=== PATIENT | male | born 1950 | race Caucasian/White ===

== ENCOUNTER 2018-12-31 05:29 | Observation (INO) | payer OTHER, MEDICARE ==
[~2018-12-31] VITALS: Ht 177.8 cm; Wt 68.0 kg
[2018-12-31 05:35] VITALS: BP 148/61
[2018-12-31 06:00] LABS: HEMATOCRIT 41.1 % (42.0-52.0); HEMOGLOBIN 13.6 gm/dL (14.0-18.0); MCH 30.1 pg (26.0-34.0); MCHC 33.1 g/dL (28.0-37.0); MCV 90.8 fL (80.0-100.0); NUCLEATED RBCS 0 /100WBC; PLATELET COUNT* 260 thou/uL (150-400); RBC 4.52 mil/uL (4.50-6.00); RDW-CV 13.1 % (10.5-14.5)
[2018-12-31 06:10] LABS: PROTIME 10.7 Seconds (9.20-11.50)
[2018-12-31 06:16] LABS: ALBUMIN 3.8 g/dL (3.4-5.0); CALCIUM 8.2 mg/dL (8.5-10.1); POTASSIUM 3.8 mmol/L (3.5-5.1)
[2018-12-31 07:04] LABS: ABSOLUTE LYMPHOCYTES 0.8 thou/uL (0.8-5.3); ABSOLUTE MONOCYTES 0.2 thou/uL (0.0-1.2); ANISOCYTOSIS 1+; PLATELET ESTIMATE ADEQUATE; POIKILOCYTOSIS 1+
[2018-12-31 10:52] VITALS: BP 115/67
[2018-12-31 14:17] VITALS: BP 120/53
--- NOTE | 2018-12-31 15:09 | OP ---
[facility] [address] [place] [address] OPERATIVE REPORT Name: PHIL DANIELLE Room: [address] IN M.R.#: [id number] Admission: 12/31/18 Attend Phys: Jeri Murillo DO Discharge: Date of : 54 Report #: [id number] THIS REPORT FOR: //name// CC: Jeri Murillo [facility] physician/PCP DICTATED BY: Brianna García DO DATE OF SERVICE: 12/31/2018 PREOPERATIVE DIAGNOSIS: Acute appendicitis. POSTOPERATIVE DIAGNOSIS: Acute appendicitis and intra-abdominal adhesions. PROCEDURE PERFORMED: Laparoscopic appendectomy. PRIMARY SURGEON: Jeri Murillo DO. ACADEMIC INTERVENTIONIST: Brianna García DO, PGY1. SECOND ACADEMIC INTERVENTIONIST: Malena Rios MS3. ANESTHESIA: General endotracheal and local. ESTIMATED BLOOD LOSS: 5. SPECIMEN REMOVED: Appendix. COMPLICATIONS: None. INDICATION FOR PROCEDURE: The patient is a 68-year-old male with past medical history of hypertension. He presented to the ED today with sudden onset right-sided lower abdominal pain that started last night, accompanied by nausea and dry heaves. He complained of increasing pain overnight and continued with nausea, no fever or chills. CT scan in the ED revealed acute appendicitis. We recommended laparoscopic appendectomy. I discussed the procedure, risks, and benefits with the patient, he wished to proceed. DESCRIPTION OF PROCEDURE: Informed consent was obtained. The patient was taken to the operating room and placed supine on the operating room table. Preoperative antibiotics were given. SCDs were placed on bilateral lower extremities. General endotracheal anesthesia was induced without difficulty. The patient's left arm was tucked at his side. The patient was then prepped and draped in the standard sterile fashion. Timeout was performed to ensure correct patient and procedure. We then began by injecting approximately 10 mL of 0.5% Marcaine supraumbilically. We then made a [place] [address] OPERATIVE REPORT Name: PHIL DANIELLE Room: [address] IN [facility]#: [id number] Admission: 12/31/18 Attend Phys: Jeri Murillo DO Discharge: Date of : 54 Report #: [id number] with #11 blade scalpel. Incision was carried down to the subcutaneous tissue using electrocautery. We then used S retractors to continue our dissection down to the fascia. Fascia was then grasped between 2 Kochers. Fascia was incised using electrocautery. We then bluntly entered the peritoneum using a hemostat. A finger sweep was performed to ensure there were no surrounding adhesions. We did find some adhesions there at the umbilicus, were taken down with blunt dissection. We then placed 2-0 Vicryl stay sutures on either side of our fascial incision. 10 mm Skyla trocar was introduced through our incision. Insufflated the abdomen. We then inserted our 5 mm laparoscopic camera and did a sweep of the anterior abdominal contents. Noted some adhesions in the left lower quadrant from a prior left inguinal hernia repair as well as some adhesions at the umbilicus. It was also noted that he has a recurrent left inguinal hernia as well as a direct and indirect right inguinal hernia seen, nothing else abnormal. We then placed a 5 mm trocar in the left lower quadrant under direct visualization. Using laparoscopic Ixonia, we then identified the appendix in the right lower quadrant. It appeared to be retrocecal. There was some purulent peritonitis. Once the appendix was identified, we then placed a suprapubic 5 mm trocar under direct visualization. We then grasped the mesoappendix with laparoscopic Magdalena, easily identified the tip of our appendix. We then used blunt dissection to identify the base of our appendix. Once the base of our appendix was identified, we took a laparoscopic [place] and made a window at the base of the appendix through the mesoappendix. Once we achieved a window through the mesoappendix at the base of the appendix, we then inserted our Endo-SRUTHI stapler with a 45 mm purple load. We came across the base of the appendix without difficulty, inspected our staple lines. Once this was completed, we then inserted another 45 mm purple load on the Endo-SRUTHI stapler to come across her mesoappendix. This again was done without difficulty. Staple lines were inspected to ensure satisfactory hemostasis. Seeing no obvious bleeding, we then placed our appendix in the EndoCatch bag. At this point, we were noticing some additional adhesions at the umbilicus near our Skyla trocar. We did take these down using electrocautery. We reinspected our staple lines and irrigated the right lower quadrant with sterile saline. At this point, we allowed the abdomen to desufflate slightly to ensure hemostasis at her staple lines. Seeing no active bleeding, we re-hooked our gas tubing to our trocar. We then removed our suprapubic and left lower quadrant 5 mm trocars under direct visualization. Abdomen was desufflated and we removed our camera. We then removed our Skyla trocar and appendix in the EndoCatch bag. Fascia was then grasped between 2 Tahira stay sutures, were removed. We then placed a [id number] 0 Vicryl suture to close the fascial opening, then closed the subcutaneous tissue at the supraumbilical incision using 3-0 Vicryl in simple interrupted fashion. I then closed the skin at the supraumbilical incision using 4-0 Monocryl in a subcuticular running fashion. The skin was closed at both the suprapubic and left lower quadrant incisions using 4-0 Monocryl in a simple interrupted fashion. The remaining 20 mL of local anesthetic was injected into our incisions. The patient tolerated the procedure well. He was allowed to awaken in the operating room, and was then [place] [address] OPERATIVE REPORT Name: PHIL DANIELLE Room: [address] IN ..#: [id number] Admission: 12/31/18 Attend Phys: Jeri Murillo DO Discharge: Date of : 54 Report #: [id number] condition with plans for admission to the floor for observation and possible discharge home later today. <ELECTRONICALLY SIGNED> By: Jeri Murillo DO 12/31/18 1509 1319 1410Chrislouann Murillo DO /nt
--- NOTE | 2018-12-31 15:56 | EKG ---
[place] [address] ELECTROCARDIOGRAM REPORT Name: PHIL DANIELLE Room: [address] ADM IN M.R.#: [id number] Admission: 12/31/18 Attend Phys: Jeri Murillo DO Discharge: Date of : 54 Report #: [id number] THIS REPORT FOR: //name// [facility] Test Date: 2018-12-31 Test Time: 11:35:38 Pat Name: PHIL MOOREBARRETTMiranda Department: Room: [facility] Gender: M Senior Maintenance Mechanic: BERNIE SHARP : 1950 Requested By: Jeri Murillo Order Number: [id number] Elsy MD: Chema Landaverde Measurements Intervals [place] Rate: 97 P: 53 ME: 155 QRS: 4 QRSD: 84 T: 23 QT: 335 QTc: 426 Interpretive Statements Sinus rhythm Consider left ventricular hypertrophy Baseline wander in lead(s) V1 No previous ECG available for comparison Electronically Signed On 12-31-2018 15:56:47 CDT by Chema Landaverde [email or web address] <ELECTRONICALLY SIGNED> By: Chema Landaverde MD, [facility] 12/31/18 1556 1135 [id number] Chema Landaverde MD, [facility] /EPI
[2018-12-31 16:40] VITALS: BP 103/61
[2018-12-31 17:47] VITALS: BP 103/61
[2018-12-31] MEDS ORDERED: OXYCODONE HCL 55 MG PO (17:53)
--- NOTE | 2019-01-01 17:06 | PATH ---
[facility] [address] [place] [address] PATHOLOGY RPT PROCEDURE Name: SCOT CRAVEN Room: [address] Jose#: [id number] Admission: 12/31/18 Date of : 54 Discharge: 12/31/18 Report #: [id number] Path Case #: [id number] [facility] Accession Number: [id number] . 01 Material submitted: . appendix - APPENDIX . 01 Clinical history: . Acute appendicitis . 02 Diagnosis: Appendix: - Acute appendicitis, periappendicitis and serositis. (MANPREET:norma; 01/01/2019) MBR/01/01/2019 . 02 Electronically signed: . Jorge Serrano MD, Pathologist NPI- [id number] . 01 Gross description: . The specimen is received in formalin, labeled "Scot Craven, appendix", is an appendix measuring 4.0 cm in length and up to 1.0 cm in width with abundantly attached mesoappendix measuring 5.0 x 2.8 x 1.0 cm. The proximal margin is closed by a linear staple line measuring 1.5 cm in length with an average 0.2 cm width. The serosa is bahena-pink and diffusely covered by roque-white fibrinopurulent exudate that extends to the adjacent mesoappendix. The staple line and the adjacent serosa is inked black. The lumen is not dilated and is filled with hemorrhagic material. The wall has an average thickness of 0.3 cm. No discrete perforation, fecalith or masses identified. Chassis Wirer tissue is submitted in A1. (SWS; 12/31/2018) SHS/SHS . 02 Pathologist provided ICD-10: K35.80, K65.8 . 02 CPT . 397129 Specimen Comment: A courtesy copy of this report has been sent to Specimen Comment: [phone]. Specimen Comment: Report sent to Performed at: [address] [id number] MD Maykel Van MD Phone: [phone] Performed at: [address] [place] [address] PATHOLOGY RPT PROCEDURE Name: LINSEYMirandaSCOT Nolasco Room: [address] Gaby Garcia#: [id number] Admission: 12/31/18 Date of : 54 Discharge: 12/31/18 Report #: [id number] Path Case #: [id number] [facility] [address], [place], [place] [id number] MD Jorge Serrano MD Phone: [phone]
== END 2018-12-31 18:29 | disposition home or self-care (01) ==
LOC: M.ERS 05:29 → M.ORTHSURG 08:02 → M.TBA 08:02 → M.TBA-ER 08:02 → M.TBA 10:54 → M.ORTHSURG 14:13
PROVIDERS: Emergency Medicine; ADMIT Surgery
DX: K35.80 Unspecified acute appendicitis (principal); K66.0 Peritoneal adhesions (postprocedural) (postinfection); I10 Essential (primary) hypertension; Z98.890 Other specified postprocedural states

== ENCOUNTER 2019-01-06 05:58 | Inpatient (IN) | payer OTHER, MEDICARE ==
[~2019-01-06] VITALS: Ht 177.8 cm; Wt 68.9 kg
[~2019-01-06 05:58] MED LIST: OXYCODONE HCL 55 MG PO
[2019-01-06 06:26] VITALS: BP 117/62
[2019-01-06 06:26] LABS: ICTOTEST (BILI CONFIRMATORY) Negative (Negative); URINE BILIRUBIN 1+ (Negative); URINE BLOOD NEGATIVE (Negative); URINE CLARITY CLEAR; URINE COLOR YELLOW; URINE GLUCOSE-RANDOM TRACE (Negative); URINE KETONES TRACE (Negative); URINE LEUKOCYTES-REFLEX NEGATIVE (Negative); URINE NITRITE-REFLEX POSITIVE (Negative); URINE PROTEIN 1+ (Negative); URINE SPECIFIC GRAVITY 1.025 (1.005-1.030)
[2019-01-06] MEDS ORDERED: LISINOPRIL20 MG PO (06:30)
[2019-01-06 06:36] LABS: HEMATOCRIT 32.1 % (42.0-52.0); HEMOGLOBIN 10.5 gm/dL (14.0-18.0); MCH 29.7 pg (26.0-34.0); MCHC 32.7 g/dL (28.0-37.0); MCV 90.9 fL (80.0-100.0); MPV 7.1 fl. (7.2-11.1); NUCLEATED RBCS 0 /100WBC; PLATELET COUNT* 405 thou/uL (150-400); RBC 3.53 mil/uL (4.50-6.00); RDW-CV 13.4 % (10.5-14.5)
[2019-01-06 06:42] LABS: CRYSTALS None Seen /LPF (None Seen); FINE GRANULAR CASTS 0-3 Few /LPF (None Seen); HYALINE CASTS 4-10 Moderate /LPF (None Seen); MUCUS 4-6 Moderate strn/LPF (None Seen); SQUAMOUS 0-3 Few /LPF (0-3); URINE RBC 0-2 Rare /HPF (0-2); URINE WBC-REFLEX 0-5 Rare /HPF (0-5)
[2019-01-06 06:57] LABS: ABSOLUTE EOSINOPHILS 0.2 thou/uL (0.0-0.7); ABSOLUTE MONOCYTES 1.6 thou/uL (0.0-1.2); ABSOLUTE NEUTROPHILS 14.2 thou/uL (1.6-8.1)
[2019-01-06 06:58] LABS: ANISOCYTOSIS 1+; PLATELET ESTIMATE INCREASED; POIKILOCYTOSIS 1+
[2019-01-06 07:02] LABS: ALBUMIN 2.9 g/dL (3.4-5.0); CREATININE 1.6 mg/dL (0.6-1.3); POTASSIUM 4.1 mmol/L (3.5-5.1); TOTAL BILIRUBIN 1.7 mg/dL (<0.1-1.0); TOTAL PROTEIN 7.6 g/dL (6.4-8.2)
--- NOTE | 2019-01-06 07:52 | NUR ---
MONA NOTIFIED UPON PT RETURN FROM CT. PT WAS NOT CONNECTED TO MONITOR HE WAS NOT CONNECTED PRIOR TO GOING TO CT
[2019-01-06 17:09] VITALS: BP 124/62
[2019-01-06 17:45] VITALS: BP 141/64
--- NOTE | 2019-01-06 18:56 | NUR ---
68 YEAR OLD MALE ADMITTED WITH POST OP ILEUS, HEMATOMA AND UTI. ADMISSION PROCESS COMPLETED. PT ORIENTED TO ROOM, BED CONTROLS AND CALL LIGHT. IVF AND ABX WERE STARTED IN THE ED. PT HAS A HEMATOMA ON THE LEFT SIDE THAT EXTENDS AROUND HIS SIDE, I OUTLINED IT WITH A SHARPIE FOR FUTURE REFERENCE. PLAN OF CARE DISCUSSED.
[2019-01-06 20:00] VITALS: BP 132/72
[2019-01-07] VITALS (14 sets, daily range): BP systolic 107–137; BP diastolic 49–73
[2019-01-07 04:01] LABS: ABSOLUTE LYMPHOCYTES 1.1 thou/uL (0.8-5.3); ABSOLUTE MONOCYTES 0.9 thou/uL (0.0-1.2); ABSOLUTE NEUTROPHILS 12.2 thou/uL (1.6-8.1); BASOPHILS 0.1 %; HEMATOCRIT 27.4 % (42.0-52.0); HEMOGLOBIN 9.2 gm/dL (14.0-18.0); LYMPHOCYTES 7.4 %; MCH 30.2 pg (26.0-34.0); MCHC 33.7 g/dL (28.0-37.0); MCV 89.6 fL (80.0-100.0); MONOCYTES 6.6 %; MPV 6.8 fl. (7.2-11.1); NUCLEATED RBCS 0 /100WBC; PLATELET COUNT* 404 thou/uL (150-400); POLYS 85.9 %; RBC 3.06 mil/uL (4.50-6.00); RDW-CV 13.4 % (10.5-14.5); WBC 14.2 thou/uL (4.0-11.0)
[2019-01-07 04:20] LABS: ALBUMIN 2.2 g/dL (3.4-5.0); CALCIUM 7.7 mg/dL (8.5-10.1); CREATININE 1.1 mg/dL (0.6-1.3); PHOSPHORUS* 3.5 mg/dL (2.5-4.9); POTASSIUM 4.7 mmol/L (3.5-5.1); TOTAL BILIRUBIN 1.3 mg/dL (<0.1-1.0); TOTAL PROTEIN 6.1 g/dL (6.4-8.2)
--- NOTE | 2019-01-07 11:37 | NUR ---
PT.ALERT AND ORIENTED. HE LIVES WITH HIS ,DEMARCUS. SHE WORKS HERE AT THE HOSPITAL. HE IS NORMALLY INDEPENDENT AND WORKS DISPLAY ASSOCIATE. NO USE OF DME. CM WILL FOLLOW FOR ANY DISCHARGE NEEDS.
--- NOTE | 2019-01-07 17:32 | NUR ---
PT REMAINED A&Ox4 THROUGHOUT SHIFT. VITALS STABLE. DRAIN PLACED IN RLQ OF ABD FOR HEMATOMA DRAINAGE. IV IN L AC PATENT, INFUSING. UP AD ZACHARIAH. PAIN CONTROLLED WITH FENTANYL. IN ROOM. CALL LIGHT WITHIN REACH. WILL CONTINUE TO MONITOR.
[2019-01-08 04:30] VITALS: BP 130/72
[2019-01-08 04:46] LABS: HEMATOCRIT 27.2 % (42.0-52.0); HEMOGLOBIN 9.1 gm/dL (14.0-18.0); MCH 29.9 pg (26.0-34.0); MCHC 33.4 g/dL (28.0-37.0); MCV 89.7 fL (80.0-100.0); MPV 6.7 fl. (7.2-11.1); RBC 3.03 mil/uL (4.50-6.00); RDW-CV 13.8 % (10.5-14.5); WBC 12.2 thou/uL (4.0-11.0)
[2019-01-08 04:49] LABS: ALBUMIN 2.4 g/dL (3.4-5.0); CALCIUM 8.1 mg/dL (8.5-10.1); MAGNESIUM 2.2 mg/dL (1.8-2.4); POTASSIUM 3.9 mmol/L (3.5-5.1); TOTAL PROTEIN 6.4 g/dL (6.4-8.2)
--- NOTE | 2019-01-08 05:30 | NUR ---
VITALS STABLE, AFEBRILE. ABLE TO REST SOME. DARK BLOODY DRAIN FROM ABDOMEN, MODERATE IN AMOUNT. NO INCREMENT IN HEMATOMA ON ABDOMEN. PATIENT DID NOT RECIEVE PAIN MEDS PER HIS REQUEST, MELATONIN PRN REQUESTED AND ADMINITERED FOR SLEEP. ABLE TO GET UP AND SIT IN BED FOR A COUPLE OF HOURS DURING THIS SHIFT. ABLE TO VOID, BM YESTERDAY. PATIENT REPORTS IT IS HARD TO PASS STOOL. CALL LIGHT WITHIN REACH, MOSTLY IN SEMI-LEWIS POSITION FOR COMFORT.
[2019-01-08 08:00] VITALS: BP 140/76
--- NOTE | 2019-01-08 13:17 | NUR ---
PT HAS THROWN UP TWICE DURING SHIFT, DARK BROWN VOMIT. BRIAN NOTIFIED. MALDONADO RETURNED PAGE AND STATED THAT IF PT IS UNCOMFORTABLE AN NG CAN BE PLACED FOR DRAINAGE.
[2019-01-08 16:00] VITALS: BP 164/71
--- NOTE | 2019-01-08 17:43 | NUR ---
PT REMAINED A&Ox4 THROUGHOUT SHIFT. VITALS STABLE. NAUSEA CONTROLLED WITH ZOFRAN. ABD STILL REMAINS DISTENDED AND FIRM. SMALL BOWEL MOVEMENTS THROUGHOUT THE DAY. UP AD ZACHARIAH. IV R AC PATENT, INFUSING. REMAINS NPO EXCEPT FOR ICE CHIPS AND MEDICATIONS. MAY HAVE HARD CANDY AND GUM, OK PER DR STEVENS. DRAIN IS PATENT. CALL LIGHT WITHIN REACH. IN ROOM. WILL CONTINUE TO MONITOR.
[2019-01-08 20:00] VITALS: BP 137/75
[2019-01-09 03:30] VITALS: BP 118/68
[2019-01-09 04:19] LABS: HEMATOCRIT 24.9 % (42.0-52.0); HEMOGLOBIN 8.4 gm/dL (14.0-18.0); MCH 30.8 pg (26.0-34.0); MCHC 33.9 g/dL (28.0-37.0); MCV 90.9 fL (80.0-100.0); MPV 6.9 fl. (7.2-11.1); RBC 2.74 mil/uL (4.50-6.00); RDW-CV 13.7 % (10.5-14.5); WBC 11.9 thou/uL (4.0-11.0)
[2019-01-09 04:37] LABS: CALCIUM 7.8 mg/dL (8.5-10.1); CREATININE 0.9 mg/dL (0.6-1.3); MAGNESIUM 2.1 mg/dL (1.8-2.4); PHOSPHORUS* 3.2 mg/dL (2.5-4.9); POTASSIUM 3.9 mmol/L (3.5-5.1)
--- NOTE | 2019-01-09 07:55 | NUR ---
Alert and oriented x 4. His abdomen was round and distended w/hypo bowel sounds. He did have a BM this shift but I didn't see it he said it was small. This am he said he had some emesis and it was light brown. Dr Sheppard was making rounds and said if the emesis continued he would need a NG placed. He did have a shower last evening. He has slept intermittenly.
[2019-01-09 08:30] VITALS: BP 141/75
[2019-01-09 10:47] LABS: CREATININE 0.9 mg/dL (0.6-1.3); POTASSIUM 3.6 mmol/L (3.5-5.1)
[2019-01-09 15:45] VITALS: BP 132/71
--- NOTE | 2019-01-09 19:42 | NUR ---
I ASSUMED CARE OF THE PATIENT AT 0700. HE IS ALERT AND ORIENTED X4 AND IS UP AD ZACHARIAH. HOURLY ROUNDING IS COMPLETED AND PATIENT NEEDS ARE MET. PAIN IS MANAGED WITH PRN MEDS. N/V ARE MONITORED AND NO NEED TO INSERT NG PER ORDERS. PATIENT WANTS TO WAIT UNTIL LATER FOR THE ENEMA. IS AT THE BEDSIDE OFF AND ON. WILL CONTINUE TO MONITOR.
[2019-01-09 20:00] VITALS: BP 137/72
[2019-01-10] VITALS: BP 127/63
[2019-01-10 03:30] VITALS: BP 135/68
[2019-01-10 04:26] LABS: HEMATOCRIT 25.6 % (42.0-52.0); HEMOGLOBIN 8.4 gm/dL (14.0-18.0); MCH 30.1 pg (26.0-34.0); MCHC 32.9 g/dL (28.0-37.0); MCV 91.3 fL (80.0-100.0); MPV 6.8 fl. (7.2-11.1); RBC 2.8 mil/uL (4.50-6.00); WBC 11.7 thou/uL (4.0-11.0)
[2019-01-10 04:47] LABS: CALCIUM 7.9 mg/dL (8.5-10.1); CREATININE 0.9 mg/dL (0.6-1.3); POTASSIUM 3.5 mmol/L (3.5-5.1)
[2019-01-10 04:52] LABS: MAGNESIUM 1.9 mg/dL (1.8-2.4); PHOSPHORUS* 3.3 mg/dL (2.5-4.9)
--- NOTE | 2019-01-10 05:04 | NUR ---
WARM TAP WATER ENEMA GIVEN AT 2039 LAST EVENING. HE DID HAVE MODRATE RESULTS IT WAS LIQUID WITH SOME SOLID STOOL, BROWN IN COLOR. PATIENT STATED HE HAD SOME RELIEF.
--- NOTE | 2019-01-10 06:10 | NUR ---
Alert and oriented x 4. He is up independently in the room. He did have a tap water enema last evening with moderate results. He did walk in the [place] yesterday on dayshi. He denies having any nausea. Abdomen is still distended and firm but appears to be less on both. The patient states he feels more relieved. He has slept well this shift.
[2019-01-10 08:10] VITALS: BP 138/71
[2019-01-10 16:00] VITALS: BP 127/63
--- NOTE | 2019-01-10 16:55 | NUR ---
PT REMAINED ALERT AND ORIENTED. PT WALKED HALLS, NO N/V OR PAIN. FALL RISK PRECAUTIONS IN PLACE. HOURLY ROUNDING COMPELTED. WILL CONTINUE TO MONITOR.
[2019-01-10 20:00] VITALS: BP 124/68
--- NOTE | 2019-01-10 23:29 | NUR ---
ASSUMED PATIENT CARE AT 1900. PATIENT ALERT AND ORIENTED TIMES FOUR. NO COMPLAINTS OF PAIN NOTED. ABD STILL VERY DISTENDED AND FIRM. ABLE TO AMBULATE INDEPENDENTLY TO THE SHOWER. IV PATENT. DRAIN IN RLQ DRAINING DK BROWN FLUID. WILL CONTINUE TO MONITOR. GRADES 1 THROUGH 5 TEACHER COMPLETED DOCUMENTED
--- NOTE | 2019-01-11 03:37 | NUR ---
PATIENT HAD A MODERATE AMOUNT OF BLACK, RUNNY STOOL.
[2019-01-11 04:29] LABS: HEMATOCRIT 24.2 % (42.0-52.0); HEMOGLOBIN 8.2 gm/dL (14.0-18.0); MCH 30.7 pg (26.0-34.0); MCHC 33.7 g/dL (28.0-37.0); MCV 91.1 fL (80.0-100.0); MPV 6.7 fl. (7.2-11.1); RBC 2.66 mil/uL (4.50-6.00); RDW-CV 14.1 % (10.5-14.5); WBC 10.3 thou/uL (4.0-11.0)
[2019-01-11 04:53] LABS: CALCIUM 7.2 mg/dL (8.5-10.1); CREATININE 0.8 mg/dL (0.6-1.3); MAGNESIUM 1.8 mg/dL (1.8-2.4); PHOSPHORUS* 2.5 mg/dL (2.5-4.9); POTASSIUM 3.3 mmol/L (3.5-5.1)
--- NOTE | 2019-01-11 06:11 | NUR ---
PATIENT RESTED WELL THROUGH THE NIGHT. WAS UP TIMES ONE TO USE THE RESTROOM AND HAD A SUCCESSFUL BM. HOURLY ROUNDING COMPLETED CHARTED
[2019-01-11 07:35] VITALS: BP 112/54
[2019-01-11 16:00] VITALS: BP 118/60
--- NOTE | 2019-01-11 16:46 | NUR ---
PT REMAINED ALERT AND ORIENTED. PT DRAIN EMPTIED AND RECORDED. PT HAD BM YESTERDAY, LOOSE AND TARRY. PT STATED THEY DID NOT WANT MIRALAX AT THIS TIME. FALL RISK PRECAUTIONS IN PLACE. PT AMBULATED IN HALLS. HOURLY ROUNDING COMPLETED. WILL CONTINUE TO MONITOR.
[2019-01-11 21:20] VITALS: BP 128/57
[2019-01-12 06:04] LABS: CALCIUM 7.3 mg/dL (8.5-10.1); CREATININE 0.8 mg/dL (0.6-1.3); MAGNESIUM 1.7 mg/dL (1.8-2.4); PHOSPHORUS* 2.3 mg/dL (2.5-4.9)
[2019-01-12 07:21] VITALS: BP 125/55
[2019-01-12 15:46] VITALS: BP 121/61
--- NOTE | 2019-01-12 17:12 | NUR ---
PT REMAINED ALERT AND ORIENTED. PT POTASSIUM AND MAGNESIUM REPLACED ORDERED. PT REFUSED 2ND DOSE OF MAGNESIUM. PT NOW ON CLEAR LIQUID DIET, WILL SWITCH BACK TO NPO IF NAUSEA OR VOMITING OCCURS. PT DENIED ANY NAUSEA AT THIS TIME. FALL RISK PRECAUTIONS IN PLACE. HOURLY ROUNDING COMPLETED. WILL CONTINUE TO MONITOR.
--- NOTE | 2019-01-12 19:57 | NUR ---
REPORT GIVEN FROM DAY SHIFT NURSE AT BEDSIDE. PATIENT AND STATED DURING REPORT THAT PATIENT DID HAVE SOME NAUSEA AND VOMITING WITH CLEAR LIQUID DINNER TRAY. REEL TENDER NURSE INSTRUCTED PATIENT NOT TO EAT OR DRINK ANYTHING ELSE THIS EVENING. PATIENT PLACED ON NPO STATUS AT THIS TIME D/T NAUSEA AND VOMITING PER 'S ORDERS IN CHART. PATIENT NOT HAVING ANY NAUSEA OR VOMITING AT THIS TIME. WILL CONTINUE WITH PATIENT CARE AND NURSING TO MONITOR.
[2019-01-12 20:45] VITALS: BP 130/58
[2019-01-13 04:56] LABS: CALCIUM 6.8 mg/dL (8.5-10.1); CREATININE 0.8 mg/dL (0.6-1.3); MAGNESIUM 1.6 mg/dL (1.8-2.4); PHOSPHORUS* 2.6 mg/dL (2.5-4.9); POTASSIUM 3.2 mmol/L (3.5-5.1)
--- NOTE | 2019-01-13 08:14 | NUR ---
PATIENT HAS SLEPT OFF AND ON DURING THE SHIFT. NO C/O PAIN. PATIENT HAS ONLY HAD SMALL AMOUNT OF EMESIS AT THE BEGINNING OF SHIFT. PATIENT REMAINS NPO AT THIS TIME EXCEPT FOR ICE CHIPS AND SIPS WITH MEDS PER DR. JACKSON. PATIENT HAS HAD 2 LIQUID STOOLS DURING SHIFT AND STATES THAT HE IS PASSING GAS. BOWEL SOUNDS POSITIVE.GRAVITY DRAIN IN PLACE WITH MINIMAL DRAINAGE. NEW IV PLACED IN RIGHT HAND-D5 1/2 NS @ 100ML/HR. IV ABT GIVEN WITHOUT ANY ADVERSE SIDE EFFECTS NOTED. PATIENT INSTRUCTED TO USE CALL LIGHT WHEN NEEDING ASSISTANCE. HOURLY ROUNDS MADE. WILL CONTINUE WITH PLAN OF CARE AND NURSING TO MONITOR.
[2019-01-13 16:29] VITALS: BP 131/65
--- NOTE | 2019-01-13 18:34 | NUR ---
PT VSS THIS SHIFT. PT IS STILL NPO AT THIS TIME AND HIS IV MAINTENANCE FLUIDS HAVE BEEN HELD DUE TO LACK OF IV ACCESS THIS SHIFT AND NEEDING OTHER MEDICATIONS. PT SEEN BY ASHLEY WITH INFUSION AND A LONG FOREARM IV WAS PLACED ON THE R THIS SHIFT DUE TO HIS R HAND GOING BAD. PT IS TOLERATING BEING UP AD ZACHARIAH THIS SHIFT WITH A STEADY GAIT. PT PASSING GAS HAS HAD SOME LOOSE STOOLS ON PREVIOUS SHIFT. LAP SITES CDI THIS SHIFT POST SHOWER. PT HAD MAGNESIUM REPLACED AND IS STILL GETTING IV POTASSIUM AT THIS TIME WITH ONE MORE BAG TO HANG. PT TOLERATING RA THIS SHIFT. HOURLY ROUNDING MAINTAINED, WILL CONTINUE TO MONITOR AND ASSESS.
[2019-01-13 21:00] VITALS: BP 147/64
[2019-01-14 07:30] VITALS: BP 118/62
--- NOTE | 2019-01-14 07:31 | NUR ---
PATIENT HAS SLEPT WELL THROUGHOUT THE NIGHT. VSS ON RA. NO C/O PAIN. NO NAUSEA OR VOMITING DURING SHIFT. PATIENT GIVEN SMALL SIPS WITH MEDICATION. PATIENTS ABDOMEN IS DISTENDED, AND BOWEL SOUNDS POSITIVE. PATIENT STATES THAT HE IS PASSING GAS. PATIENT IS UP AD-ZACHARIAH AND STEADY ON FEET. DRAIN TO RIGHT LOWER QUADRANT IS IN PLACE WITH MINIMAL DRAINAGE. IV IN RIGHT FOREARM-D5 1/2 NS @ 100ML/HR. IV ABT GIVEN WITHOUT ANY ADVERSE SIDE EFFECTS NOTED. PATIENT INSTRUCTED TO USE CALL LIGHT WHEN NEEDING ASSISTANCE. HOURLY ROUNDS MADE. WILL CONTINUE WITH PLAN OF CARE AND NURSING TO MONITOR.
[2019-01-14 09:14] LABS: CALCIUM 7.4 mg/dL (8.5-10.1); CREATININE 0.9 mg/dL (0.6-1.3)
--- NOTE | 2019-01-14 11:21 | NUR ---
SPOKE WITH PT.'S IN [place]. SHE SAID HE WAS FINALLY DOING SOME BETTER. SHE HOPES HE CAN START ON CLEAR LIQUIDS TODAY. PT.IS UP AD ZACHARIAH. PAIN/NAUSEA MUCH IMPROVED.
[2019-01-14 16:05] VITALS: BP 139/79
--- NOTE | 2019-01-14 17:01 | NUR ---
PT REMAINED ALERT AND ORIENTED. PT HAS HAD SEVERAL LOOSE STOOLS. DRAIN IN PLACE WITH SANGINOUS FLUID. PT STARTED ON CLEAR LIQUID. PT DENIES ANY NAUSEA OR VOMITING THIS SHIFT. FALL RISK PRECAUTIONS IN PLACE. HOURLY ROUNDING COMPLETED. WILL CONTINUE TO MONITOR.
[2019-01-14 20:00] VITALS: BP 135/54
[2019-01-15 05:13] LABS: CREATININE 0.8 mg/dL (0.6-1.3); MAGNESIUM 1.6 mg/dL (1.8-2.4); PHOSPHORUS* 2.9 mg/dL (2.5-4.9); POTASSIUM 3.3 mmol/L (3.5-5.1)
--- NOTE | 2019-01-15 06:36 | NUR ---
PT REMAINED ALERT AND ORIENTED. VITALS, SpO2 STABLE RA. NO PAIN, NAUSEA OR VOMITING THIS SHIFT. IV MEDS, FLUID GIVEN ORDERED. 20ML DARK RED DRAINAGE PER COLLECTION BAG THIS SHIFT. NO BM REPORTED. WILL CONTINUE TO MONITOR.
[2019-01-15 07:30] VITALS: BP 121/62
--- NOTE | 2019-01-15 14:38 | NUR ---
Nutrition: Pt admitted with SBO. Assessed for LOS. Tolerating CLD currently. On Reglan. Wt: 152#. Alb 2.4, prealb 12.6. Liquid BM yday. Mild risk. GOALS: advance diet as appropriate and tolerated. RD available.
[2019-01-15 16:18] VITALS: BP 123/66
[2019-01-15 18:00] VITALS: BP 135/67
--- NOTE | 2019-01-15 18:03 | NUR ---
PT REMAINED ALERT AND ORIENTED. PT TOLERATING CLEARLIQUID DIET. MAGNESIUM AND POTASSIUM REPLACED ORDERED. ALL RISK PRECAUTIONS IN PLACE. HOURLY ROUNDING COMPLETED. WILL CONTINUE TO MONITOR.
--- NOTE | 2019-01-15 18:19 | NUR ---
PT TRANSFERRRING TO 3W, REPORT GIVEN TO NEW NURSE.
--- NOTE | 2019-01-15 18:35 | NUR ---
TRANSFER NOTE - ASSUMED CARE OF PT AT THIS TIME. AGREE WITH PREVIOUS CHARTING. WILL CONTINUE TO MONITOR.
[2019-01-16] VITALS: BP 115/54
[2019-01-16 05:45] LABS: MAGNESIUM 1.9 mg/dL (1.8-2.4); POTASSIUM 4.1 mmol/L (3.5-5.1)
[2019-01-16 08:00] VITALS: BP 112/58
--- NOTE | 2019-01-16 16:03 | NUR ---
SHIFT NOTE - PT UP AD ZACHARIAH. PT WALKED HALLS WITH THIS AFTERNOON. DENIES PAIN/NAUSEA THIS SHIFT. WILL CONTINUE TO MONITOR.
[2019-01-16 17:31] VITALS: BP 116/63
[2019-01-16 20:29] VITALS: BP 119/59
[2019-01-17 08:00] VITALS: BP 115/46
--- NOTE | 2019-01-17 09:15 | NUR ---
PT IS ABLE TO COMMUNICATE HIS NEEDS TO STAFF EFFECTIVELY. 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 FULL LIQUID DIET MAINTAINED OVERNIGHT. RLQ DRAINAGE TUBE PATENT.
[2019-01-17 15:21] VITALS: BP 111/58
--- NOTE | 2019-01-17 18:50 | NUR ---
PATIENT IS ALERT AND ORIENTED X 4. DENIES PAIN AND NAUSEA. ABLE TO TOLERATE DIET FOR MEALS. DRAIN INTACT TO RLQ. IV PATENT DURING DAY. PATIENT UP TO SHOWER IN AFTERNOON. INDICATED PASSING GAS AND MINIMAL OF LOOSE STOOL. PATIENT UP INDEPENDENTLY. HOURLY ROUNDS MAINTAINED. CALL LIGHT WITHIN REACH.
[2019-01-17 20:50] VITALS: BP 117/59
--- NOTE | 2019-01-18 05:07 | NUR ---
PT REMAINED ALERT AND ORIENTED. PT SLEPT THROUGH THE NIGHT. FALL RISK PRECAUTIONS IN PLACE. HOURLY ROUNDING COMPLETED. WILL CONTINUE TO MONITOR.
[2019-01-18 08:15] VITALS: BP 114/46
[2019-01-18 14:01] VITALS: BP 114/46
--- NOTE | 2019-01-18 14:20 | NUR ---
PATIENT'S IV REMOVED. PATIENT HAD DRAIN REMOVED BY SURGERY THIS AFTERNOON. PATIENT AND GIVEN DISCHARGE INSTRUCTIONS AND VERBALIZED UNDERSTANDING IN REGARDS TO FOLLOW UP APPOINTMENTS, MEDS, AND S/S TO CALL PHYSICIAN. PATIENT AMBULATED OFF NURSING UNIT WITH NURSING STAFF. DISCHARGED TO HOME.
== END 2019-01-18 14:20 | disposition home or self-care (01) | DRG 393 ==
LOC: M.ERS 05:58 → M.ORTHSURG 09:55 → M.TBA-ER 09:55 → M.ORTHSURG 16:52 → M.3W 01-15 18:35
PROVIDERS: Emergency Medicine; Family Medicine; Surgery; ADMIT Surgery
PROC: 0J9830Z Drainage of Abdomen Subcutaneous Tissue and Fascia with Drainage Device, Percutaneous Approach (ICD-10-PCS; principal; 2019-01-07)
DX: K91.89 Other postprocedural complications and disorders of digestive system (principal); R65.11 Systemic inflammatory response syndrome (SIRS) of non-infectious origin with acute organ dysfunction; N17.9 Acute kidney failure, unspecified; N39.0 Urinary tract infection, site not specified; S36.92XA Contusion of unspecified intra-abdominal organ, initial encounter; K56.609 Unspecified intestinal obstruction, unspecified as to partial versus complete obstruction; K56.7 Ileus, unspecified; E86.0 Dehydration; I10 Essential (primary) hypertension; Z90.49 Acquired absence of other specified parts of digestive tract; X58.XXXA Exposure to other specified factors, initial encounter; Y83.8 Other surgical procedures as the cause of abnormal reaction of the patient, or of later complication, without mention of misadventure at the time of the procedure; Y93.89 Activity, other specified; Y92.89 Other specified places as the place of occurrence of the external cause; Y99.8 Other external cause status

== ENCOUNTER 2019-01-31 06:20 | Inpatient (IN) | payer OTHER, MEDICARE ==
[~2019-01-31] VITALS: Ht 177.8 cm; Wt 68.0 kg
[2019-01-31] VITALS (12 sets, daily range): BP systolic 103–154; BP diastolic 50–87
[~2019-01-31 06:20] MED LIST changes: +LISINOPRIL20 MG PO
[2019-01-31 07:10] LABS: HEMATOCRIT 27.9 % (42.0-52.0); HEMOGLOBIN 9.3 gm/dL (14.0-18.0); MCH 28.9 pg (26.0-34.0); MCHC 33.4 g/dL (28.0-37.0); MCV 86.6 fL (80.0-100.0); MPV 6.7 fl. (7.2-11.1); NUCLEATED RBCS 0 /100WBC; PLATELET COUNT* 609 thou/uL (150-400); RBC 3.22 mil/uL (4.50-6.00); RDW-CV 14.7 % (10.5-14.5); WBC 13.7 thou/uL (4.0-11.0)
[2019-01-31 07:12] LABS: ANION GAP 9 mmol/L (7-16); BUN 20 mg/dL (7-18); CALCIUM 8.5 mg/dL (8.5-10.1); CHLORIDE 97 mmol/L (98-107); CO2 27 mmol/L (21-32); CREATININE 1.1 mg/dL (0.6-1.3); GLUCOSE 148 mg/dL (70-99); POTASSIUM 4.1 mmol/L (3.5-5.1); SODIUM 133 mmol/L (136-145)
[2019-01-31 07:13] LABS: APTT 31.7 Seconds (25.0-31.3); INR 1.3; PROTIME 12.9 Seconds (9.20-11.50)
[2019-01-31 07:21] LABS: ALBUMIN 2.3 g/dL (3.4-5.0); ALKALINE PHOSPHATASE 280 U/L (46-116); LIPASE 65 U/L (73-393); SGOT 109 U/L (15-37); SGPT 248 U/L (30-65); TOTAL BILIRUBIN 0.6 mg/dL (<0.1-1.0); TOTAL PROTEIN 7.2 g/dL (6.4-8.2); TROPONIN-I LEVEL <0.06 ng/mL (<0.06)
[2019-01-31 08:15] LABS: ABSOLUTE EOSINOPHILS 0.3 thou/uL (0.0-0.7); ABSOLUTE LYMPHOCYTES 1.4 thou/uL (0.8-5.3); ABSOLUTE NEUTROPHILS 11.1 thou/uL (1.6-8.1); ANISOCYTOSIS 1+; PLATELET ESTIMATE INCREASED; POIKILOCYTOSIS 1+
[2019-01-31 09:16] LABS: URINE BILIRUBIN NEGATIVE (Negative); URINE BLOOD NEGATIVE (Negative); URINE CLARITY CLEAR; URINE COLOR YELLOW; URINE GLUCOSE-RANDOM NEGATIVE (Negative); URINE KETONES NEGATIVE (Negative); URINE LEUKOCYTES-REFLEX NEGATIVE (Negative); URINE NITRITE-REFLEX NEGATIVE (Negative); URINE PROTEIN NEGATIVE (Negative); URINE SPECIFIC GRAVITY <= 1.005 (1.005-1.030)
--- NOTE | 2019-01-31 16:36 | EKG ---
[place] [address] ELECTROCARDIOGRAM REPORT Name: PHIL DANIELLE Room: [address] ADM IN M.R.#: [id number] Admission: 01/31/19 Attend Phys: Jeri Murillo DO Discharge: Date of : 54 Report #: [id number] THIS REPORT FOR: //name// [facility] ED Test Date: 2019-01-31 Test Time: 07:51:31 Pat Name: PHIL LINSEYMiranda Department: Room: [facility] Gender: Commissary Representative: Shahrzad ROBERTSON : 1950 Requested By: Rico Milton Order Number: [id number] MD: Arnie Watkins Measurements Intervals [place] Rate: 101 P: PA: QRS: 4 QRSD: 83 T: 19 QT: 342 QTc: 444 Interpretive Statements nsr Consider left ventricular hypertrophy Compared to ECG 12/31/2018 11:35:38 Sinus rhythm no longer present Electronically Signed On 01-31-2019 16:36:39 CDT by Arnie Watkins [email or web address] <ELECTRONICALLY SIGNED> By: Arnie Watkins MD, FACC 01/31/19 1636 [id number] Arnie Watkins MD, [facility] /EPI
--- NOTE | 2019-01-31 16:42 | NUR ---
PT ADMITTED TO UNIT WITH PELVIC ABSCESS. IR SAW PT AND OBTAINED FLUID AND SENT IT OUT. PT IS NPO EXCEPT WITH MEDS. INCISION OVER RT BUTTOCK WHERE IR OBTAINED FLUID, GAUZE AND TEGADERM O0VER IT. PT HAS FLUIDS AND ABX RUNNING AT RT AC IV. SCD IN ROOM. MG CITRATE GIVEN, PT STATES LAST BM 4 DAYS AGO. HYPO ACTIVE BOWEL SOUNDS. FALL RISK PRECAUTIONS IN PLACE. HOURLY ROUNDING COMPLETED. WILL CONTINUE TO MONITOR.
[2019-02-01 03:55] LABS: HEMATOCRIT 29.9 % (42.0-52.0); HEMOGLOBIN 9.7 gm/dL (14.0-18.0); MCH 28.3 pg (26.0-34.0); MCHC 32.4 g/dL (28.0-37.0); MCV 87.5 fL (80.0-100.0); MPV 6.7 fl. (7.2-11.1); RBC 3.42 mil/uL (4.50-6.00); RDW-CV 14.8 % (10.5-14.5); WBC 13.5 thou/uL (4.0-11.0)
[2019-02-01 04:10] LABS: ALBUMIN 2.2 g/dL (3.4-5.0); CALCIUM 7.9 mg/dL (8.5-10.1); MAGNESIUM 1.9 mg/dL (1.8-2.4); PHOSPHORUS* 3.4 mg/dL (2.5-4.9); POTASSIUM 3.8 mmol/L (3.5-5.1); TOTAL BILIRUBIN 0.5 mg/dL (<0.1-1.0); TOTAL PROTEIN 6.9 g/dL (6.4-8.2)
--- NOTE | 2019-02-01 06:30 | NUR ---
vitals stable, afebrile. bm x2, per patient. patient reports bm "has more color to it" and is "more formed". sleeping through the night. reports some pain, but does not want medication for it. able to turn self in bed. call light within reach.
[2019-02-01 07:40] VITALS: BP 117/57
--- NOTE | 2019-02-01 11:53 | NUR ---
PT KNOWN TO CM FROM PREVIOUS HOSPTIAL STAY. ATTEMPTED TO SEE PT IN ROOM. PT LIVES WITH . HE WORKS AND IS INDEPENDENT. WILL FOLLOW
[2019-02-01 16:00] VITALS: BP 116/59
--- NOTE | 2019-02-01 17:23 | NUR ---
PT REMAINED ALERT AND ORIENTED X4. PT RESTING IN ROOM. PT HAS HAD LOOSE BM TODAY. ABX GIVEN ORDERED. PT ON CLR LIQUIDS AND TOLERATING DIET. FALL RISK PRECAUTIONS IN PLACE. HOURLY ROUNDING COMPLETED. WILL CONTINUE TO MONITOR.
[2019-02-01 20:10] VITALS: BP 113/56
--- NOTE | 2019-02-02 05:42 | NUR ---
PT REMAINED ALERT AND ORIENTED. VITALS, SpO2 STABLE. FLUID, IV ANTIBIOTICS GIVEN ORDERED. PT DENIED PAIN. NO NAUSEA OR VOMITING. PROCEDURAL SITE ON RT LOWER ABDOMEN CLEAN AND DRY, NO DRESSING. HOURLY ROUNDING COMPLETED. WILL CONTINUE TO MONITOR.
[2019-02-02 07:20] VITALS: BP 111/55
[2019-02-02 16:00] VITALS: BP 116/54
--- NOTE | 2019-02-02 17:10 | NUR ---
PT REMAINED ALERT AND ORIENTED. PT HAVING LOOSE BM'S. PT RESTING IN ROOM. NO PAIN OR N/V. FALL RISK PRECAUTIONS IN PLACE. HOURLY ROUNDING COMPLETED. WILL CONTINUE TO MONITOR.
[2019-02-02 20:00] VITALS: BP 118/56
--- NOTE | 2019-02-03 05:26 | NUR ---
ASSUMED CARE OF PT AT 1900 PT ALERT AND ORIENTED X4 VS AND ASSESSMENT STABLE. PT VOICED NO CONCERNS AND SLEPT THROUGH THE NIGHT. WILL CONTINUE PLAN OF CARE.
[2019-02-03 07:05] VITALS: BP 123/62
[2019-02-03 08:45] LABS: CALCIUM 7.5 mg/dL (8.5-10.1); CREATININE 0.8 mg/dL (0.6-1.3); POTASSIUM 3.7 mmol/L (3.5-5.1)
--- NOTE | 2019-02-03 17:05 | NUR ---
PT REMAINED ALERT AND ORIENTED. HAVING LOOSE BM BUT BECOMING MORE SOLID. PT DOES NOT WANT MIRALAX ONLY MILK OF MG. PT TOLERATED FIBER RESTRICTED DIET. FLUIDS DC'D. IV ABX GIVEN. FALL RISK PRECAUTIONS IN PLACE. HOURLY ROUNDING COMPLETED. WILL CONTINUE TO MONITOR.
[2019-02-03 17:32] VITALS: BP 123/49
[2019-02-03 20:40] VITALS: BP 118/56
[2019-02-04 07:15] VITALS: BP 122/60
--- NOTE | 2019-02-04 07:28 | NUR ---
PATIENT HAS SLEPT WELL THROUGHOUT THE NIGHT. VSS ON RA. NO C/O PAIN. NO N/V. NEW IV INSERTED IN RIGHT FOREARM-SL. IV ABT GIVEN WITHOUT ANY ADVERSE SIDE EFECTS NOTED. PATIENT INSTRUCTED TO USE CALL LIGHT WHEN NEEDING ASSISTANCE. HOURLY ROUNDS MADE. WILL CONTINUE WITH PLAN OF CARE AND NURSING TO MONITOR.
[2019-02-04 15:27] VITALS: BP 123/60
--- NOTE | 2019-02-04 17:10 | NUR ---
PT REMAINED ALERT AND ORIENTED THIS SHIFT. PT RESTING ROOM. PT HAVING LOOSE BM'S. TOLERATING DIET. FALL RISK PRECAUTIONS IN PLACE. HOURLY ROUNDING COMPLETED. WILL CONTINUE TO MONITOR.
[2019-02-04 20:45] VITALS: BP 120/68
--- NOTE | 2019-02-05 04:38 | NUR ---
PATIENT HAS SLEPT WELL THROUGHOUT THE NIGHT. VSS ON RA. NO C/O PAIN. NO N/V. PATIENT IS UP AND AMBULATING. STILL HAVING LIQUID STOOLS. IV IN RIGHT FOREARM-SL. IV ABT GIVEN WITHOUT ANY ADVERSE SIDE EFFECTS NOTED. PATIENT INSTRUCTED TO USE CALL LIGHT WHEN NEEDING ASSISTANCE. HOURLY ROUNDS MADE. WILL CONTINUE WITH PLAN OF CARE AND NURSING TO MONITOR.
[2019-02-05 05:17] LABS: ABSOLUTE BASOPHILS 0.1 thou/uL (0.0-0.2); ABSOLUTE EOSINOPHILS 0.4 thou/uL (0.0-0.7); ABSOLUTE LYMPHOCYTES 1.8 thou/uL (0.8-5.3); ABSOLUTE MONOCYTES 0.7 thou/uL (0.0-1.2); ABSOLUTE NEUTROPHILS 4.9 thou/uL (1.6-8.1); BASOPHILS 0.7 %; EOSINOPHILS 5.2 %; HEMATOCRIT 25.9 % (42.0-52.0); HEMOGLOBIN 8.5 gm/dL (14.0-18.0); LYMPHOCYTES 22.6 %; MCH 29.1 pg (26.0-34.0); MCHC 33.1 g/dL (28.0-37.0); MCV 87.9 fL (80.0-100.0); MONOCYTES 8.9 %; MPV 6.7 fl. (7.2-11.1); NUCLEATED RBCS 0 /100WBC; PLATELET COUNT* 506 thou/uL (150-400); POLYS 62.6 %; RBC 2.94 mil/uL (4.50-6.00); RDW-CV 14.9 % (10.5-14.5); WBC 7.8 thou/uL (4.0-11.0)
[2019-02-05 05:46] LABS: ALBUMIN 2.1 g/dL (3.4-5.0); CALCIUM 7.6 mg/dL (8.5-10.1); CREATININE 0.8 mg/dL (0.6-1.3); POTASSIUM 3.8 mmol/L (3.5-5.1); TOTAL BILIRUBIN 0.2 mg/dL (<0.1-1.0); TOTAL PROTEIN 5.9 g/dL (6.4-8.2)
[2019-02-05 07:10] VITALS: BP 127/65
[2019-02-05 17:17] VITALS: BP 123/65
--- NOTE | 2019-02-05 17:20 | NUR ---
PT REMAINED ALERT AND ORIENTED. PT RESTING IN ROOM. FALL RISK PRECAUTIONS IN PLACE. HOURLY ROUNDING COMPLETED. WILL CONTINUE TO MONITOR.
[2019-02-05 21:00] VITALS: BP 108/63
[2019-02-06 04:08] LABS: HEMOGLOBIN 8.9 gm/dL (14.0-18.0); MCH 28.8 pg (26.0-34.0); MCHC 32.9 g/dL (28.0-37.0); MCV 87.5 fL (80.0-100.0); MPV 6.2 fl. (7.2-11.1); RBC 3.09 mil/uL (4.50-6.00); RDW-CV 15.5 % (10.5-14.5); WBC 7.4 thou/uL (4.0-11.0)
[2019-02-06 04:33] LABS: CALCIUM 7.8 mg/dL (8.5-10.1); CREATININE 0.9 mg/dL (0.6-1.3); MAGNESIUM 2.2 mg/dL (1.8-2.4); PHOSPHORUS* 3.1 mg/dL (2.5-4.9)
--- NOTE | 2019-02-06 05:11 | NUR ---
PATIENT HAS SLEPT WELL THROUGHOUT THE NIGHT. VSS ON RA. NO C/O PAIN. NO N/V. PATIENT STILL HAVING LOOSE STOOLS. PATIENT UP AND AMBULATING. IV IN RIGHT FOREARM-SL. IV ABT GIVEN WITHOUT ANY ADVERSE SIDE EFFECTS. PATIENT INSTRUCTED TO USE CALL LIGHT WHEN NEEDING ASSISTANCE. HOURLY ROUNDS MADE. WILL CONTINUE WITH PLAN OF CARE AND NURSING TO MONITOR.
[2019-02-06 07:40] VITALS: BP 124/47
--- NOTE | 2019-02-06 12:01 | NUR ---
VISITED WITH PT. HE SAID HE FEELS GOOD. IS HOPING TO GO HOME TODAY. HE SAID HE WILL NOT HAVE ANY DISCHARGE NEEDS.
[2019-02-06 16:29] VITALS: BP 109/60
--- NOTE | 2019-02-06 16:56 | NUR ---
ASSUMED CARE OF PATIENT AT APPROX 0730. ALERT AND ORIENTED X4. ASSESSMENT COMPLETED AND CHARTED. VSS ON ROOM AIR. ANTIBIOTICS INFUSED ORDERED THEN SALINE LOCKED. NO COMPLAINTS OF PAIN OR NAUSEA, TOLERATING DIET WELL TODAY. UP AD [place] IN THE ROOM AND WALKING THE UNIT. HOURLY ROUNDS COMPLETED, CALL LIGHT WITHIN REACH, NURSING WILL CONTINUE TO MONITOR.
[2019-02-06 20:20] VITALS: BP 121/65
--- NOTE | 2019-02-07 04:51 | NUR ---
PT REMAINED ALERT AND ORIENTED. VITALS STABLE RA. PT DENIED PAIN/NAUSEA. WILL CONTINUE TO MONITOR.
[2019-02-07] MEDS ORDERED: MIRALAX17 G1 PO (10:05)
[2019-02-07] MEDS ORDERED: MAG-AL LIQUID30 ML PO (10:06)
[2019-02-07 10:07] VITALS: BP 90/59
--- NOTE | 2019-02-07 10:40 | NUR ---
ASSUMED CARE OF PATIENT AT APPROX 0730. ALERT AND ORIENTED X4. ASSESSMENT COMPLETED AND CHARTED. VSS ON ROOM AIR. NO COMPLAINTS OF PAIN, NAUSEA, OR SOA. PATIENT DISCHARGED AT 1039 WITH ALL PERSONAL BELONGINGS AND DISCHARGE INFORMATION.
== END 2019-02-07 10:39 | disposition home or self-care (01) | DRG 919 ==
LOC: M.ERS 06:20 → M.TBA-ER 08:29 → M.ORTHSURG 08:29
PROVIDERS: Family Medicine; Surgery; ADMIT Surgery
DX: K91.870 Postprocedural hematoma of a digestive system organ or structure following a digestive system procedure (principal); K65.1 Peritoneal abscess; E87.1 Hypo-osmolality and hyponatremia; I10 Essential (primary) hypertension; Z90.49 Acquired absence of other specified parts of digestive tract; K59.00 Constipation, unspecified; Y83.8 Other surgical procedures as the cause of abnormal reaction of the patient, or of later complication, without mention of misadventure at the time of the procedure

== ENCOUNTER → 2019-08-18 | Day surgery (SDC) | payer OTHER, MEDICARE ==
[~2019-08-18] MED LIST changes: +LIPITOR10 MG PO; +MAG-AL LIQUID30 ML PO; +MIRALAX17 G1 PO; +PROTONIX40 M1 PO; +ZESTRIL10 MG PO
[2019-08-18 10:28] LABS: HEMATOCRIT 39.5 % (42.0-52.0); HEMOGLOBIN 13.5 gm/dL (14.0-18.0); MCH 31.5 pg (26.0-34.0); MCHC 34.2 g/dL (28.0-37.0); MCV 92.3 fL (80.0-100.0); RBC 4.28 mil/uL (4.50-6.00); RDW-CV 13.7 % (10.5-14.5); WBC 6.1 thou/uL (4.0-11.0)
[2019-08-18 10:36] LABS: CREATININE 0.9 mg/dL (0.6-1.3)
[2019-08-18 10:41] LABS: TOTAL BILIRUBIN 0.8 mg/dL (<0.1-1.0); TOTAL PROTEIN 7.2 g/dL (6.4-8.2)
--- NOTE | 2019-08-18 13:20 | EKG ---
[place] [address] ELECTROCARDIOGRAM REPORT Name: PHIL DANIELLE Room: [facility]#: [id number] Admission: 08/18/19 Attend Phys: Jake Crow DO Discharge: Date of : 54 Report #: [id number] THIS REPORT FOR: //name// [facility] Test Date: 2019-08-18 Test Time: 10:19:45 Pat Name: PHIL LOLIS Department: Room: Gender: M Vice President Of Development: : 1950 Requested By: Jake Crow Order Number: [id number] Reading MD: Peyman Bourne Measurements Intervals [place] Rate: 64 P: 53 OK: 150 QRS: 25 QRSD: 91 T: 33 QT: 389 QTc: 402 Interpretive Statements Sinus rhythm Consider left ventricular hypertrophy Compared to ECG 01/31/2019 07:51:31 LEFT VENTRICULAR HYPERTROPHY now noted Electronically Signed On 08-18-2019 13:20:22 ICT HELP DESK OFFICER by Peyman Bourne [email or web address] <ELECTRONICALLY SIGNED> By: Peyman Bourne MD, [facility] 08/18/19 1320 1019 [id number] Peyman Bourne MD, FACC /EPI
--- NOTE | 2019-08-25 13:43 | OP ---
[address] [address] OPERATIVE REPORT Name: PHIL DANIELLE Room: [facility]#: [id number] Admission: 08/18/19 Attend Phys: Jake Crow DO Discharge: Date of : 54 Report #: [id number] THIS REPORT FOR: //name// CC: Jake Crow FAM unknown Marla Dobbins, Nurse practitioner DATE OF SERVICE: 08/18/2019 REFERRING PHYSICIAN: Nurse practitioner, Marla Dobbins. PREOPERATIVE DIAGNOSIS: Bilateral inguinal hernias. POSTOPERATIVE DIAGNOSES: Right direct and indirect inguinal hernia and intra-abdominal adhesions. PROCEDURES: Da Ricci robotic-assisted laparoscopy and lysis of adhesions and laparoscopic right inguinal hernia repair with extra-large Bard 3DMax mesh. SURGEON: Jake Crow DO PUBLIC ADDRESS TECHNICIAN: Dr. Josie Sheppard. ANESTHESIA: General endotracheal. ESTIMATED BLOOD LOSS: Less than 20 mL. COMPLICATIONS: None. INDICATIONS FOR PROCEDURE: This is a 69-year-old male, who previously had a ruptured appendix and some postop complications including postop ileus and a hematoma. He came to the office complaining of right groin pain as well as some left groin pain. He was told at the time of his appendectomy that he had a left inguinal hernia. The majority of his pain was actually on the left side prior to this operation. DESCRIPTION OF PROCEDURE: After obtaining proper consents and discussing risks and complications with the patient, he was taken to the operating room, laid in the supine position, administered general anesthesia. He was then prepped and aped in the usual sterile fashion. A timeout was performed. We confirmed the appropriate patient and procedure. Preoperative antibiotics had been given. SCDs were in place. We then made a supraumbilical incision through the patient's previous incision there from his appendectomy and was carried down through the skin into the subcutaneous tissue using electrocautery for hemostasis. We then grasped and elevated the fascia and identified the peritoneum, which was sharply opened using Metzenbaum [place] [address] OPERATIVE REPORT Name: PHIL DANIELLE Room: [facility]#: [id number] Admission: 08/18/19 Attend Phys: Jake Crow DO Discharge: Date of : 54 Report #: [id number] see into the peritoneal cavity at this point. We then placed 2-0 Vicryl sutures in a [id number] fashion to secure the da Ricci camera port, which was then inserted. Once the camera port was inserted, insufflation was begun. Once insufflation was complete, full visual inspection of the anterior abdominal organs was performed. This immediately revealed adhesions along the left lower abdomen. There was also noted to be a definite right indirect and direct inguinal hernia. We could not visualize the entire inguinal region on the left side at this point, but we could see some metallic clips that had been placed from a previous laparoscopic repair by another surgeon. At this point, we could see very well in the upper quadrant, so we elected to place two more trocars, one in the right ribs and one in the left ribs. We then docked the da Ricci robot. Once the robot was docked, we were able to identify the adhesions there were some adhesions on the right side, most likely from the patient's previous appendectomy, which were taken down easily. These were omental adhesions only adherent to the abdominal wall below the area of the hernia, but I did free this up in order to make the hernia repair somewhat easier. We then turned our attention to the adhesions on the left side and these actually started in the mid portion of the abdomen and extended all the way over the left side where the patient previously had a hernia repair. The adhesions were taken down from the peritoneum. We were able to visualize multiple tacks that appeared to have been used to close the peritoneum during that repair. The hernia repair itself seemed to be intact and there was no evidence of reherniation on the left side, but I did take approximately 30 minutes to take down the adhesions on the left side, so this area was completely free, especially since the patient was having some discomfort there. We then turned our attention to the right side where I opened the peritoneum from the median umbilical ligament laterally just beyond the ASIS. I then developed the preperitoneal space using blunt dissection starting medially and going all the way down to and below the pubic ramus and over to the midline as well. I then continued the dissection laterally. The peritoneum near the direct inguinal hernia was a fairly robust and I was able to dissect the direct inguinal hernia free and reduced it back into the peritoneal cavity where the indirect inguinal hernia was, which was much smaller by the way, was very flimsy and I did get a small hole in the peritoneum as I was dissecting. There also was a very thin peritoneum low down and I did get another hole in the peritoneum as I was dissecting more laterally all the way up to the ASIS. At this point, we elected to place an extra-large Bard 3DMax mesh. Once the preperitoneal space was completely developed, I then inserted the mesh and sutured it and place to Efra's ligament medially and then medial and lateral to the inferior epigastric vessels using 2-0 Vicryl suture. I then closed the peritoneal flap using a running 2-0 absorbable V-Loc suture. Once this was done, I then repaired the peritoneal holes using interrupted 2-0 Vicryl suture in a [id number] fashion to close all of the holes in the peritoneum. The peritoneum was completely sealed and we then undocked the da Ricci robot. I rescrubbed back into the case and we used a PMI closure device to close the 12 mm right upper quadrant trocar site. The remaining trocars were removed under direct vision and then the umbilical fascia was closed using the [address] [place] [address] OPERATIVE REPORT Name: PHIL DANIELLE Room: [facility]#: [id number] Admission: 08/18/19 Attend Phys: Jake Crow DO Discharge: Date of : 54 Report #: [id number] placed 0 Vicryl sutures plus 2 additional 0 Vicryl sutures. Skin incisions were all closed with 4-0 Monocryl subcuticular stitches. The patient had tap blocks prior to starting the surgical procedure, so we did not inject any more local. The patient was then awakened in the operating room and transported to recovery room in stable condition. <ELECTRONICALLY SIGNED> By: Jake Crow DO 08/25/19 1343 1313 [id number] Crow, DO /nt
== END | disposition home or self-care (01) ==
LOC: M.SUR 06:32
PROVIDERS: Surgery
DX: K40.90 Unilateral inguinal hernia, without obstruction or gangrene, not specified as recurrent (principal); K66.0 Peritoneal adhesions (postprocedural) (postinfection); I10 Essential (primary) hypertension; Z98.890 Other specified postprocedural states; Z90.49 Acquired absence of other specified parts of digestive tract; Z79.899 Other long term (current) drug therapy; Z79.891 Long term (current) use of opiate analgesic

== ENCOUNTER → 2019-10-21 | Outpatient (CLI) | payer OTHER | LOC: M.CT 08:37 | DX: Z13.6 Encounter for screening for cardiovascular disorders (principal); E78.00 Pure hypercholesterolemia, unspecified; I25.10 Atherosclerotic heart disease of native coronary artery without angina pectoris ==

== ENCOUNTER → 2020-04-29 | Outpatient (CLI) | payer OTHER ==
[2020-04-29 10:30] LABS: ABSOLUTE EOSINOPHILS 0.3 thou/uL (0.0-0.7); ABSOLUTE LYMPHOCYTES 1.8 thou/uL (0.8-5.3); ABSOLUTE MONOCYTES 0.5 thou/uL (0.0-1.2); BASOPHILS 0.8 %; EOSINOPHILS 5.7 %; HEMATOCRIT 41.5 % (42.0-52.0); HEMOGLOBIN 14.1 gm/dL (14.0-18.0); LYMPHOCYTES 31.5 %; MCH 31.9 pg (26.0-34.0); MCV 93.6 fL (80.0-100.0); MONOCYTES 9.5 %; MPV 7.1 fl. (7.2-11.1); NUCLEATED RBCS 0 /100WBC; PLATELET COUNT* 230 thou/uL (150-400); POLYS 52.5 %; RBC 4.44 mil/uL (4.50-6.00); RDW-CV 13.2 % (10.5-14.5); WBC 5.7 thou/uL (4.0-11.0)
[2020-04-29 10:37] LABS: ALBUMIN 3.8 g/dL (3.4-5.0); ALKALINE PHOSPHATASE 44 U/L (46-116); ANION GAP 9 mmol/L (7-16); BUN 25 mg/dL (7-18); CALCIUM 8.4 mg/dL (8.5-10.1); CHLORIDE 104 mmol/L (98-107); CHOLESTEROL 148 mg/dL (<200); CO2 28 mmol/L (21-32); GLUCOSE 95 mg/dL (70-99); HDL CHOLESTEROL 74 mg/dL (>40); LDL CHOLESTEROL 56 mg/dL (<100); POTASSIUM 4.1 mmol/L (3.5-5.1); SGOT 15 U/L (15-37); SGPT 25 U/L (30-65); SODIUM 141 mmol/L (136-145); TOTAL BILIRUBIN 0.5 mg/dL (<0.1-1.0); TOTAL PROTEIN 6.9 g/dL (6.4-8.2); TRIGLYCERIDE 91 mg/dL (<150); VLDL 18 mg/dL (<40)
[2020-04-29 10:38] LABS: SERUM ASSESSMENT Clear
[2020-04-30 02:06] LABS: GLYCOHEMOGLOBIN (HGB A1C) 5.8 % (4.8-5.6)
[2020-04-30 19:07] LABS: % FREE PSA 26.7 % (()); FREE PSA 0.16 ng/mL
== END ==
LOC: M.LAB 09:56
PROVIDERS: ATTEND Internal Medicine
DX: Z00.00 Encounter for general adult medical examination without abnormal findings (principal); I10 Essential (primary) hypertension; E78.00 Pure hypercholesterolemia, unspecified; R35.1 Nocturia; R73.01 Impaired fasting glucose; R53.82 Chronic fatigue, unspecified; Z12.5 Encounter for screening for malignant neoplasm of prostate; Z79.899 Other long term (current) drug therapy

== ENCOUNTER → 2020-10-27 | Outpatient (CLI) | payer OTHER | LOC: M.LAB 07:14 | PROVIDERS: ATTEND Internal Medicine Gastroenterology | DX: Z01.812 Encounter for preprocedural laboratory examination (principal); Z20.822 Contact with and (suspected) exposure to COVID-19; R13.10 Dysphagia, unspecified ==

== ENCOUNTER → 2021-04-11 | Outpatient (CLI) | payer OTHER ==
[2021-04-11 09:42] LABS: ABSOLUTE EOSINOPHILS 0.2 thou/uL (0.0-0.7); ABSOLUTE LYMPHOCYTES 1.5 thou/uL (0.8-5.3); ABSOLUTE MONOCYTES 0.7 thou/uL (0.0-1.2); ABSOLUTE NEUTROPHILS 3.1 thou/uL (1.6-8.1); BASOPHILS 0.7 %; EOSINOPHILS 3.2 %; HEMATOCRIT 41.1 % (42.0-52.0); LYMPHOCYTES 27.2 %; MCH 31.1 pg (26.0-34.0); MCV 91.7 fL (80.0-100.0); MONOCYTES 11.9 %; MPV 6.5 fl. (7.2-11.1); NUCLEATED RBCS 0 /100WBC; PLATELET COUNT* 234 thou/uL (150-400); RBC 4.48 mil/uL (4.50-6.00); RDW-CV 13.5 % (10.5-14.5); WBC 5.5 thou/uL (4.0-11.0)
[2021-04-11 09:58] LABS: ALBUMIN 3.8 g/dL (3.4-5.0); ALKALINE PHOSPHATASE 47 U/L (46-116); ANION GAP 7 mmol/L (7-16); BUN 18 mg/dL (7-18); CALCIUM 8.2 mg/dL (8.5-10.1); CHLORIDE 105 mmol/L (98-107); CHOLESTEROL 158 mg/dL (<200); CO2 30 mmol/L (21-32); CREATININE 0.9 mg/dL (0.6-1.3); GLUCOSE 105 mg/dL (70-99); HDL CHOLESTEROL 64 mg/dL (>40); LDL CHOLESTEROL 71 mg/dL (<100); POTASSIUM 4.2 mmol/L (3.5-5.1); SERUM ASSESSMENT Clear; SGOT 15 U/L (15-37); SGPT 27 U/L (30-65); SODIUM 142 mmol/L (136-145); TC:HDL 2.5 Ratio (Not establshd); TOTAL BILIRUBIN 0.4 mg/dL (<0.1-1.0); TOTAL PROTEIN 7.1 g/dL (6.4-8.2); TRIGLYCERIDE 115 mg/dL (<150); VLDL 23 mg/dL (<40)
[2021-04-12 02:07] LABS: GLYCOHEMOGLOBIN (HGB A1C) 5.9 % (4.8-5.6)
[2021-04-12 15:11] LABS: % FREE PSA 25.7 % (()); FREE PSA 0.18 ng/mL
== END ==
LOC: M.LAB 09:22
PROVIDERS: ATTEND Internal Medicine
DX: Z00.00 Encounter for general adult medical examination without abnormal findings (principal); Z12.5 Encounter for screening for malignant neoplasm of prostate; R73.02 Impaired glucose tolerance (oral); K20.0 Eosinophilic esophagitis; R53.82 Chronic fatigue, unspecified; I10 Essential (primary) hypertension; Z79.899 Other long term (current) drug therapy; E78.00 Pure hypercholesterolemia, unspecified

== ENCOUNTER → 2021-10-10 | Outpatient (CLI) | payer OTHER | LOC: M.LAB 10-04 15:49 → M.CT 08:00 | PROVIDERS: ATTEND Surgery | DX: K44.9 Diaphragmatic hernia without obstruction or gangrene (principal); K57.30 Diverticulosis of large intestine without perforation or abscess without bleeding ==